=== PATIENT | female | born 1990 | race Caucasian/White ===

== ENCOUNTER 2017-01-08 17:08 | Inpatient (IN) | payer OTHER ==
--- NOTE | 2017-01-08 17:42 | PCM.LDHP ---
L&D History of Present Illness - General Date of Service: 01/08/17 Admit Problem/Dx: Admission Diagnosis/Problem Admission Diagnosis/Problem Source of Information: Patient History Limitations: Reports: No limitations - History of Present Illness Introduction:: Patient is a 26 y/o at 23 5/7 wks who presents to L&D today due to complaints of decreased FM yesterday and today. Reports this has otherwise been complicated. No recent falls or traumas. No other concerns. - Related Data Allergies/Adverse Reactions: Allergies Allergy/AdvReac Type Severity Reaction Status Date / Time amoxicillin Allergy Rash Verified 09/18/15 09:13 Sulfa (Sulfonamide Allergy Hives Verified 09/18/15 09:13 Antibiotics) Home Medications: Home Meds Acetaminophen [Tylenol] 650 mg PO Q6H PRN #50 tablet 09/14/15 [Rx] Acetaminophen/oxyCODONE [Percocet 325-5 MG] 1 tab PO Q6H PRN #15 tablet [Rx] Benzocaine/Menthol [Dermoplast Pain Relief [place]] 1 spray TOP ASDIRECTED PRN #1 canister 09/14/15 [Rx] Docusate Sodium [Colace] 100 mg PO BID PRN #50 cap 09/14/15 [Rx] Ferrous Sulfate 325 mg PO BIDMEALS #50 tablet 09/14/15 [Rx] Ibuprofen [Motrin] 200 - 600 mg PO Q6H PRN #50 tablet 09/14/15 [Rx] Lanolin [Lansinoh HPA] 1 applic TOP ASDIRECTED PRN #1 tube 09/14/15 [Rx] Vit with Ca/FA/Iron [ Plus Iron] 1 each PO DAILY #100 tablet [Rx] Vit C/Ascorbate Ca/Ascorb Sod [Vitamin C] 500 mg PO BID #50 ml 09/14/15 [Rx] Misoprostol [Cytotec] 200 mcg PO Q6H #16 tablet 09/15/15 [Rx] Past Medical History Cardiovascular History: Reports: Other (see below) (Gestational HTN/ Preeclampsia with first ) 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) LMP (Approximate): - Past Surgical History Other HEENT Surgeries/Procedures: [place] teeth extraction under [place] Female Surgical History: Reports: D&C ( due to retained placenta) Social & Family History - Tobacco Use Smoking Status *Q: Former Smoker (quit 9 months ago) Years of Tobacco use: 7 Packs/Tins Daily: 1 Used Tobacco, but Quit: Yes Month Tobacco Last Used: January Second Hand Smoke Exposure: No - Alcohol Use Alcohol Use History: No Days Per Week of Alcohol Use: 0 - Recreational Drug Use Recreational Drug Use: No H&P Review of Systems - Review of Systems: Review Of Systems: See Below General: Reports: no symptoms Pulmonary: Reports: No Symptoms Cardiovascular: Reports: no symptoms Gastrointestinal: Reports: No symptoms Genitourinary: Reports: no symptoms Musculoskeletal: Reports: no symptoms Psychiatric: Reports: no symptoms L&D Exam - Exam Exam: See Below - Vital Signs Weight: 98.883 kg - OB Specific Contraction Intensity: Irritability movement: not appreciated heart tones: not heard Presentation: Breech - Exam General: alert, oriented, cooperative Lungs: Clear to auscultation, Normal respiratory effort Cardiovascular: regular rate, regular rhythm Abdomen: soft Genitourinary: Normal external exam Extremities: normal inspection Skin: warm, dry, intact - Problem List (1) 23 weeks gestation of SNOMED Code(s): 20619794 ICD Code: Z3A.23 - 23 WEEKS GESTATION OF Status: Acute Current Visit: Yes (2) Intrauterine in SNOMED Code(s): 57565010, 278989065 ICD Code: O36.4XX0 - MATERNAL CARE FOR INTRAUTERINE , NOT APPLICABLE OR UNSP Status: Acute Current Visit: Yes Qualifiers: Fetus number: single or unspecified fetus Qualified Code(s): O36.4XX0 - Maternal care for intrauterine , not applicable or unspecified Problem List Initiated/Reviewed/Updated: Yes Orders Last 24hrs: My Active Orders 01/08/17 20:00 ANTICARDIOLIPIN AB PANEL IGG/M [REF] Timed ANTITHROMBIN III ACTIVITY [REF] Timed CBC W/O DIFF,HEMOGRAM [HEME] Timed FACTOR 5 LEIDEN MUTATION [REF] Timed FIBRINOGEN [COAG] Timed INR,PT,PROTHROMBIN TIME [COAG] Timed LUPUS ANTICOAGULANT PANEL [REF] Timed MISC TEST Urgent PARVOVIRUS B19 IGG AND IGM [REF] Timed PROTHROMBIN 22088 MUTATION [REF] Timed PTT,PARTIAL THROMBOPLSTIN TIME [COAG] Timed TSH [CHEM] Timed TYPE AND SCREEN [BBK] Timed Assessment/Plan Comment:: 26 y/0 at 23 5/7 wks with demise. * Lab testing as above to help determine etiology of demise. Also discussed sending placenta and karyotype. Reviewed possibility of autopsy and they will consider this. * Pain management per her preference * Will proceed with Cytotec 400 mcg vaginal q 4 hours. 600 mcg buccal after delivery to aid in expulsion of placenta. Clara Ellis MD
--- NOTE | 2017-01-08 18:38 | US ---
Obstetrical ultrasound: Multiple real-time images were obtained transabdominally. Comparison: Previous obstetrical ultrasounds are available, most recent is 12/30/16. Dates: LMP: ? Current ultrasound: BEN 05/22/17, gestational age 20 weeks 6 days Earliest ultrasound, BEN 05/02/17, gestational age 23 weeks 5 days Findings: Skull has an elongated abnormal shape. Mild amount of ascites is seen within the abdomen. No heart activity is seen. Measurements: BPD: 4.09 cm - 18 weeks 3 days Head circumference: 17.93 cm 20 weeks 3 days Abdominal circumference: 17.05 cm - 22 weeks 1 day Femur length: 3.77 cm - 22 weeks 1 day Estimated weight: 444 g (1 lb. 0 oz.) Impression: 1. Single intrauterine fetus. Dates as noted above. 2. Abnormal skull as well as a mild amount of ascites. No heart activity is seen. Findings unfortunately are compatible with demise. Diagnostic code #5
[2017-01-08] MEDS ORDERED: Sodium Chloride 0.9% 10 ML Syringe FLUSH PRN (18:43)
[2017-01-08] MEDS ORDERED: Ondansetron 4 MG/2 ML SDV IVPUSH PRN (18:43)
[2017-01-08] MEDS ORDERED: Nalbuphine 20 MG/1 ML Amp IVPUSH PRN (18:43)
[2017-01-08] MEDS ORDERED: Lactated Ringers 1,000 ML IV SCH (18:45)
--- NOTE | 2017-01-08 19:10 | PCM.PREANE ---
Preanesthetic Assessment - Anesthesia/Transfusion/Family Hx Anesthesia History: Prior Anesthesia Without Reaction Type of Anesthesia Reaction: Unknown Family History of Anesthesia Reaction: No Transfusion History: Prior Transfusion Reaction (allergic reaction with last transfusion with last child. Pts throat began to swell about 1.5 hours after infusion started) Type of Transfusion Reactions: Reports: Unknown Intubation History: Unknown - Review of Systems General: No Symptoms Pulmonary: No Symptoms Cardiovascular: No Symptoms Gastrointestinal: No symptoms Neurological: No Symptoms Other: Reports: None - Physical Assessment NPO Status Date: 01/08/17 NPO Status Time: 15:00 Pulse: 84 O2 Sat by Pulse Oximetry: 98 Respiratory Rate: 20 Blood Pressure: 144/72 Temperature: 36.7 C Height: 1.63 m Weight: 98.883 kg ASA Class: 2 Mental Status: Alert & Oriented x3 Dentition: Reports: Normal Dentition Thyro-Mental Finger Breadths: 3 Mouth Opening Finger Breadths: 3 ROM/Head Extension: Full Lungs: Clear to auscultation, Normal respiratory effort Cardiovascular: Regular Rate, Regular Rhythm - Lab Values: pending lab results - Allergies Allergies/Adverse Reactions: Allergies Allergy/AdvReac Type Severity Reaction Status Date / Time amoxicillin Allergy Rash Verified 09/18/15 09:13 Sulfa (Sulfonamide Allergy Hives Verified 09/18/15 09:13 Antibiotics) - Blood Blood Available: No Product(s) Available: None - Anesthesia Plan Pre-Op Medication Ordered: None - Acknowledgements Anesthesia Type Planned: Epidural Pt an Appropriate Candidate for the Planned Anesthesia: Yes Alternatives and Risks of Anesthesia Discussed w Pt/Guardian: Yes Pt/Guardian Understands and Agrees with Anesthesia Plan: Yes PreAnesthesia Questionnaire Cardiovascular History: Reports: Other (see below) (Gestational HTN/ Preeclampsia with first ) 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: - Past Surgical History Other HEENT Surgeries/Procedures: [place] teeth extraction under [place] Female Surgical History: Reports: D&C ( due to retained placenta) - SUBSTANCE USE Smoking Status *Q: Former Smoker (quit 9 months ago) Tobacco Use Within Last Twelve Months: Cigarettes Second Hand Smoke Exposure: No Days Per Week of Alcohol Use: 0 Recreational Drug Use History: No - HOME MEDS Home Medications: Home Meds Acetaminophen [Tylenol] 650 mg PO Q6H PRN #50 tablet 09/14/15 [Rx] Acetaminophen/oxyCODONE [Percocet 325-5 MG] 1 tab PO Q6H PRN #15 tablet [Rx] Benzocaine/Menthol [Dermoplast Pain Relief [place]] 1 spray TOP ASDIRECTED PRN #1 canister 09/14/15 [Rx] Docusate Sodium [Colace] 100 mg PO BID PRN #50 cap 09/14/15 [Rx] Ferrous Sulfate 325 mg PO BIDMEALS #50 tablet 09/14/15 [Rx] Ibuprofen [Motrin] 200 - 600 mg PO Q6H PRN #50 tablet 09/14/15 [Rx] Lanolin [Lansinoh HPA] 1 applic TOP ASDIRECTED PRN #1 tube 09/14/15 [Rx] Vit with Ca/FA/Iron [ Plus Iron] 1 each PO DAILY #100 tablet [Rx] Vit C/Ascorbate Ca/Ascorb Sod [Vitamin C] 500 mg PO BID #50 ml 09/14/15 [Rx] Misoprostol [Cytotec] 200 mcg PO Q6H #16 tablet 09/15/15 [Rx] - CURRENT (IN HOUSE) MEDS Current Meds: Current Medications Lactated Ringer's (Ringers, Lactated) 1,000 mls @ 40 mls/hr IV ASDIRECTED SONYA Misoprostol (Cytotec) 400 mcg PO Q4H SONYA Nalbuphine HCl (Nubain) 10 mg IVPUSH Q2H PRN PRN Reason: Pain (moderate 4-6) Ondansetron HCl (Zofran) 4 mg IVPUSH Q4H PRN PRN Reason: Nausea/Vomiting Sodium Chloride (Saline Flush) 10 ml FLUSH ASDIRECTED PRN PRN Reason: Keep Vein Open
[2017-01-08] MEDS ORDERED: Misoprostol 200 MCG Tab PO SCH (21:00)
[2017-01-08] MEDS: Misoprostol 200 MCG Tab VAG SCH (23:10)
[2017-01-09] MEDS: Misoprostol 200 MCG Tab VAG SCH ×4 (00:24→12:03)
[2017-01-09] MEDS ORDERED: Misoprostol 200 MCG Tab ONE (07:11)
--- NOTE | 2017-01-09 09:47 | PCM.PNLD ---
Labor Progress Note - VS & Meds Vital Signs: Last Vital Signs Temp 37.1 C 01/09/17 05:50 Pulse 81 01/09/17 05:50 Resp 15 01/09/17 00:38 BP 132/53 L 01/09/17 05:50 Pulse Ox 96 01/09/17 05:50 Active Medications: Current Medications Lactated Ringer's (Ringers, Lactated) 1,000 mls @ 40 mls/hr IV ASDIRECTED [facility] Misoprostol (Cytotec) 400 mcg VAG Q4H [facility] Last Admin: 01/09/17 07:35 Dose: 400 mcg Nalbuphine HCl (Nubain) 10 mg IVPUSH Q2H PRN PRN Reason: Pain (moderate 4-6) Ondansetron HCl (Zofran) 4 mg IVPUSH Q4H PRN PRN Reason: Nausea/Vomiting Sodium Chloride (Saline Flush) 10 ml FLUSH ASDIRECTED PRN PRN Reason: Keep Vein Open Discontinued Medications Misoprostol (Cytotec) 400 mcg PO Q4H [facility] Last Admin: 01/08/17 20:11 Dose: 400 mcg Misoprostol (Cytotec) Confirm Administered Dose 600 mcg .ROUTE .STK-MED ONE Stop: 01/09/17 07:12 - Uterine Contractions Uterine Monitoring Mode: None in Use Contraction Intensity: Irritability - Vaginal Exam Dilation (cm): 4 Effacement (Percent): 80 Station: -1 Cervical Position: Midposition - Labor Progress (Free Text) Labor Progress: Patient doing well. Feeling more uncomfortable. Attempt made at ROM. Scant fluid returned. Next dose of cytotec placed. Anticipate
--- NOTE | 2017-01-09 09:49 | PCM.DEL ---
L & D Note - General Info Date of Service: 01/09/17 - Delivery Note Cervical Ripening Method: Misoprostil Delivery Outcome: Stillbirth Delivery Method: Spontaneous Vaginal Delivery Delivery Mode: Spontaneous Presentation: Breech Nuchal cord: none Anesthesia Type: None Amniotic Fluid Description: Clear Episiotomy Type: None Laceration: none Placenta: expressed Estimated blood loss: 350 Delivery Comments (Free Text/Narrative):: Patient found to be complete and began pushing. With maternal pushing effort fetus delivered from breech presentation. Cord clamped and cut. Baby cleaned and handed to mom/father. Patient given 600 mcg of buccal cytotec to aid in delivery of placenta. At about 30 minutes post delivery exam done which showed placenta partially within cervix. It was grasped and in combination with maternal pushing effort was expelled intact. - Patient Data Vitals - most recent: Last Vital Signs Temp 37.1 C 01/09/17 05:50 Pulse 81 01/09/17 05:50 Resp 15 01/09/17 00:38 BP 132/53 L 01/09/17 05:50 Pulse Ox 96 01/09/17 05:50 Weight - most recent: 98.883 kg Lab Results last 24 hrs: Laboratory Results - last 24 hr 01/08/17 01/08/17 01/08/17 Range/Units 17:30 20:00 20:00 WBC 10.66 H (3.98-10.04) K/mm3 RBC 4.51 (3.98-5.22) M/mm3 Hgb 13.8 (11.2-15.7) gm/L Hct 39.3 (34.1-44.9) % MCV 87.1 (79.4-94.8) fl MCH 30.6 (25.6-32.2) pg MCHC 35.1 (32.2-35.5) g/dl RDW Std Deviation 40.5 (36.4-46.3) fL Plt Count 231 (182-369) K/mm3 MPV 11.4 (9.4-12.3) fl PT 9.5 (8.0-13.0) SECONDS INR 0.88 APTT 27 (22-36) SECONDS Fibrinogen 415.4 H (200-400) mg/dL TSH 3rd Generation (0.358-3.74) uIU/mL Urine Opiates Screen Negative (NEGATIVE) Ur Buprenorphine Scrn Negative (NEGATIVE) Ur Oxycodone Screen Negative (NEGATIVE) Urine Methadone Screen Negative (NEGATIVE) Ur Propoxyphene Screen Negative (NEGATIVE) Ur Barbiturates Screen Negative (NEGATIVE) Ur Tricyclics Screen Negative (NEGATIVE) Ur Phencyclidine Scrn Negative (NEGATIVE) Ur Amphetamine Screen Negative (NEGATIVE) U Methamphetamines Scrn Negative (NEGATIVE) U Benzodiazepines Scrn Negative (NEGATIVE) U Cocaine Metab Screen Negative (NEGATIVE) U Marijuana (THC) Screen Negative (NEGATIVE) Blood Type Gel Antibody Screen 01/08/17 01/08/17 Range/Units 20:00 20:00 WBC (3.98-10.04) K/mm3 RBC (3.98-5.22) M/mm3 Hgb (11.2-15.7) gm/L Hct (34.1-44.9) % MCV (79.4-94.8) fl MCH (25.6-32.2) pg MCHC (32.2-35.5) g/dl RDW Std Deviation (36.4-46.3) fL Plt Count (182-369) K/mm3 MPV (9.4-12.3) fl PT (8.0-13.0) SECONDS INR APTT (22-36) SECONDS Fibrinogen (200-400) mg/dL TSH 3rd Generation 1.782 (0.358-3.74) uIU/mL Urine Opiates Screen (NEGATIVE) Ur Buprenorphine Scrn (NEGATIVE) Ur Oxycodone Screen (NEGATIVE) Urine Methadone Screen (NEGATIVE) Ur Propoxyphene Screen (NEGATIVE) Ur Barbiturates Screen (NEGATIVE) Ur Tricyclics Screen (NEGATIVE) Ur Phencyclidine Scrn (NEGATIVE) Ur Amphetamine Screen (NEGATIVE) U Methamphetamines Scrn (NEGATIVE) U Benzodiazepines Scrn (NEGATIVE) U Cocaine Metab Screen (NEGATIVE) U Marijuana (THC) Screen (NEGATIVE) Blood Type O POSITIVE Gel Antibody Screen Negative Med Orders - Current: Current Medications Lactated Ringer's (Ringers, Lactated) 1,000 mls @ 40 mls/hr IV ASDIRECTED SONYA Misoprostol (Cytotec) 400 mcg VAG Q4H SONYA Last Admin: 01/09/17 07:35 Dose: 400 mcg Nalbuphine HCl (Nubain) 10 mg IVPUSH Q2H PRN PRN Reason: Pain (moderate 4-6) Ondansetron HCl (Zofran) 4 mg IVPUSH Q4H PRN PRN Reason: Nausea/Vomiting Sodium Chloride (Saline Flush) 10 ml FLUSH ASDIRECTED PRN PRN Reason: Keep Vein Open Discontinued Medications Misoprostol (Cytotec) 400 mcg PO Q4H SONYA Last Admin: 01/08/17 20:11 Dose: 400 mcg Misoprostol (Cytotec) Confirm Administered Dose 600 mcg .ROUTE .ST-MED ONE Stop: 01/09/17 07:12 - Problem List & Annotations (1) 23 weeks gestation of SNOMED Code(s): 87355460 Code(s): Z3A.23 - 23 WEEKS GESTATION OF Status: Acute Current Visit: Yes (2) Intrauterine in SNOMED Code(s): 28262815, 945680916 Code(s): O36.4XX0 - MATERNAL CARE FOR INTRAUTERINE , NOT APPLICABLE OR UNSP Status: Acute Current Visit: Yes Qualifiers: Fetus number: single or unspecified fetus Qualified Code(s): O36.4XX0 - Maternal care for intrauterine , not applicable or unspecified (3) Vaginal delivery SNOMED Code(s): 193716820 Code(s): O80 - ENCOUNTER FOR FULL-TERM UNCOMPLICATED DELIVERY Status: Acute Current Visit: Yes - Problem List Review Problem List Initiated/Reviewed/Updated: Yes - My Orders Last 24 Hours: My Active Orders 01/08/17 18:43 Patient Status [ADT] Routine Activity as Tolerated [RC] PFP Vital Signs [RC] PER UNIT ROUTINE Nalbuphine [Nubain] 10 mg IVPUSH Q2H PRN Ondansetron [Zofran] 4 mg IVPUSH Q4H PRN Sodium Chloride 0.9% [Saline Flush] 10 ml FLUSH ASDIRECTED PRN Peripheral IV Insertion Adult [OM.PC] Routine Resuscitation Status Routine 01/08/17 18:44 Peripheral IV Care [RC] . DIRECTED 01/08/17 18:45 Lactated Ringers [Ringers, Lactated] 1,000 ml IV ASDIRECTED 01/08/17 20:00 ANTICARDIOLIPIN AB PANEL IGG/M [REF] Timed ANTITHROMBIN III ACTIVITY [REF] Timed FACTOR 5 LEIDEN MUTATION [REF] Timed LUPUS ANTICOAGULANT PANEL [REF] Timed PARVOVIRUS B19 IGG AND IGM [REF] Timed PROTHROMBIN 31837 MUTATION [REF] Timed 01/08/17 21:00 Misoprostol [Cytotec] 400 mcg VAG Q4H 01/09/17 09:42 Patient Status Manage Transfer [TRANSFER] Routine - Assessment Assessment:: 26 y/0 G2 now P1101 PPD#0 from at 23 6/7 wks after IOL for demise. - Plan Plan:: * Lab testing pending * Routine/supportive cares * Discharge today vs tomorrow pending patient preference Clara Ellis MD
[2017-01-09] MEDS ORDERED: Ibuprofen 600 MG Tab PO PRN (12:03)
[2017-01-09] MEDS ORDERED: Acetaminophen 325 MG Tab PO PRN (12:03)
[2017-01-09] MEDS ORDERED: Witch Hazel Medicated Pads 100/Jar TOP PRN (12:03)
--- NOTE | 2017-01-09 14:39 | PCM.DCSUM1 ---
Discharge Summary - Discharge Data Discharge Date: 01/09/17 Discharge Disposition: Home, Self-Care 01 Condition: Good - Discharge Diagnosis/Problem(s) (1) 23 weeks gestation of SNOMED Code(s): 28785385 ICD Code: Z3A.23 - 23 WEEKS GESTATION OF Status: Acute Current Visit: Yes (2) Intrauterine in SNOMED Code(s): 05170907, 774146704 ICD Code: O36.4XX0 - MATERNAL CARE FOR INTRAUTERINE , NOT APPLICABLE OR UNSP Status: Acute Current Visit: Yes Qualifiers: Fetus number: single or unspecified fetus Qualified Code(s): O36.4XX0 - Maternal care for intrauterine , not applicable or unspecified (3) Vaginal delivery SNOMED Code(s): 659933142 ICD Code: O80 - ENCOUNTER FOR FULL-TERM UNCOMPLICATED DELIVERY Status: Acute Current Visit: Yes - Patient Summary/Data Complications: None Consults: None Labs Pending at D/C: Laboratory evaluation for demise pending at time of discharge Recommended Follow-up Testing/Procedures: Follow up in ~2 weeks for a mood check. Follow up in 5-6 weeks for check Hospital Course: 26 y/o admitted at 23 5/7 wks for complaints of decreased FM. Findings that day were consistent with a demise. Evaluation/work up collected. See H&P note for all labs drawn. Induction started with cytotec. She progressed well and underwent an uncomplicated . she was monitored for about 8 hours and then requested discharge home. This was felt reasonable. She will follow up in a few weeks for mood check and then in 5-6 weeks for check - Patient Instructions Diet: Regular Diet as Tolerated Activity: As Tolerated Activity, Other: Pelvic Rest for 6 weeks Driving: May Drive Today Showering/Bathing: May Shower Showering/Bathing, Other: May Bathe Notify Provider of: Fever, Increased Pain, Swelling and Redness, Drainage, Nausea and/or Vomiting - Discharge Plan Home Medications: Home Meds Ibuprofen [Motrin] 200 - 600 mg PO Q6H PRN #50 tablet 09/14/15 [Rx] Vit with Ca/FA/Iron [ Plus Iron] 1 each PO DAILY #100 tablet [Rx] Referrals: Clara Ellis MD [Physician] - (Mood check January 26- if she desires ) Randy Hayes MD [Primary Care Provider] - (5-6 weeks for check ) - Discharge Summary/Plan Comment DC Time >30 min.: No - Patient Data Vitals - Most Recent: Last Vital Signs Temp 37.2 C 01/09/17 09:53 Pulse 94 01/09/17 09:53 Resp 16 01/09/17 09:53 BP 128/65 01/09/17 09:53 Pulse Ox 98 01/09/17 09:53 Weight - Most Recent: 98.883 kg Lab Results - Last 24 hrs: Laboratory Results - last 24 hr 01/08/17 01/08/17 01/08/17 Range/Units 17:30 20:00 20:00 WBC 10.66 H (3.98-10.04) K/mm3 RBC 4.51 (3.98-5.22) M/mm3 Hgb 13.8 (11.2-15.7) gm/L Hct 39.3 (34.1-44.9) % MCV 87.1 (79.4-94.8) fl MCH 30.6 (25.6-32.2) pg MCHC 35.1 (32.2-35.5) g/dl RDW Std Deviation 40.5 (36.4-46.3) fL Plt Count 231 (182-369) K/mm3 MPV 11.4 (9.4-12.3) fl PT 9.5 (8.0-13.0) SECONDS INR 0.88 APTT 27 (22-36) SECONDS Fibrinogen 415.4 H (200-400) mg/dL TSH 3rd Generation (0.358-3.74) uIU/mL Urine Opiates Screen Negative (NEGATIVE) Ur Buprenorphine Scrn Negative (NEGATIVE) Ur Oxycodone Screen Negative (NEGATIVE) Urine Methadone Screen Negative (NEGATIVE) Ur Propoxyphene Screen Negative (NEGATIVE) Ur Barbiturates Screen Negative (NEGATIVE) Ur Tricyclics Screen Negative (NEGATIVE) Ur Phencyclidine Scrn Negative (NEGATIVE) Ur Amphetamine Screen Negative (NEGATIVE) U Methamphetamines Scrn Negative (NEGATIVE) U Benzodiazepines Scrn Negative (NEGATIVE) U Cocaine Metab Screen Negative (NEGATIVE) U Marijuana (THC) Screen Negative (NEGATIVE) Blood Type Gel Antibody Screen 01/08/17 01/08/17 Range/Units 20:00 20:00 WBC (3.98-10.04) K/mm3 RBC (3.98-5.22) M/mm3 Hgb (11.2-15.7) gm/L Hct (34.1-44.9) % MCV (79.4-94.8) fl MCH (25.6-32.2) pg MCHC (32.2-35.5) g/dl RDW Std Deviation (36.4-46.3) fL Plt Count (182-369) K/mm3 MPV (9.4-12.3) fl PT (8.0-13.0) SECONDS INR APTT (22-36) SECONDS Fibrinogen (200-400) mg/dL TSH 3rd Generation 1.782 (0.358-3.74) uIU/mL Urine Opiates Screen (NEGATIVE) Ur Buprenorphine Scrn (NEGATIVE) Ur Oxycodone Screen (NEGATIVE) Urine Methadone Screen (NEGATIVE) Ur Propoxyphene Screen (NEGATIVE) Ur Barbiturates Screen (NEGATIVE) Ur Tricyclics Screen (NEGATIVE) Ur Phencyclidine Scrn (NEGATIVE) Ur Amphetamine Screen (NEGATIVE) U Methamphetamines Scrn (NEGATIVE) U Benzodiazepines Scrn (NEGATIVE) U Cocaine Metab Screen (NEGATIVE) U Marijuana (THC) Screen (NEGATIVE) Blood Type O POSITIVE Gel Antibody Screen Negative Med Orders - Current: Current Medications Acetaminophen (Tylenol) 650 mg PO Q4H PRN PRN Reason: mild pain or fever Ibuprofen (Motrin) 600 mg PO Q4H PRN PRN Reason: Mild pain or fever [place] (Tucks) 1 pad TOP ASDIRECTED PRN PRN Reason: Hemorrhoid pain Discontinued Medications Lactated Ringer's (Ringers, Lactated) 1,000 mls @ 40 mls/hr IV ASDIRECTED SONYA Misoprostol (Cytotec) 400 mcg PO Q4H SONYA Last Admin: 01/08/17 20:11 Dose: 400 mcg Misoprostol (Cytotec) 400 mcg VAG Q4H SONYA Last Admin: 01/09/17 12:03 Dose: Not Given Misoprostol (Cytotec) Confirm Administered Dose 600 mcg .ROUTE .STK-MED ONE Stop: 01/09/17 07:12 Last Admin: 01/09/17 08:48 Dose: 600 mcg Nalbuphine HCl (Nubain) 10 mg IVPUSH Q2H PRN PRN Reason: Pain (moderate 4-6) Ondansetron HCl (Zofran) 4 mg IVPUSH Q4H PRN PRN Reason: Nausea/Vomiting Sodium Chloride (Saline Flush) 10 ml FLUSH ASDIRECTED PRN PRN Reason: Keep Vein Open *Q Meaningful Use (DIS) - VTE *Q VTE Criteria *Q: - Stroke *Q Stroke Criteria *Q: - AMI *Q AMI Criteria *Q:
[2017-01-09 15:09] VITALS: BP 126/76
== END 2017-01-09 15:30 | disposition home or self-care (01) | DRG 775 ==
LOC: JD.OBCHECK 17:08 → JD.OB 17:08 → JD.OBCHECK 18:43 → OBSVTOIN 01-09 09:42
PROVIDERS: ADMIT Obstetrics & Gynecology; ATTEND Obstetrics & Gynecology
PROC: 10E0XZZ Delivery of Products of Conception, External Approach (ICD-10-PCS; principal; 2017-01-09)
PROC: 3E0P7GC Introduction of Other Therapeutic Substance into Female Reproductive, Via Natural or Artificial Opening (ICD-10-PCS; 2017-01-09)
DX: O36.4XX0 Maternal care for intrauterine death, not applicable or unspecified (principal); O32.1XX0 Maternal care for breech presentation, not applicable or unspecified; Z3A.24 24 weeks gestation of pregnancy; Z37.1 Single stillbirth; Z88.1 Allergy status to other antibiotic agents; Z88.2 Allergy status to sulfonamides; Z87.891 Personal history of nicotine dependence
CPT/HCPCS: 36415; 76815; 76815-26; 80306; 81240; 81241; 84443; 85027; 85300; 85384; 85460; 85610; 85613; 85730; 86147; 86747; 86850; 86900; 86901; 87149; 88233; 88307; 88307-26; A9270-GY

== ENCOUNTER 2022-12-13 07:10 | Inpatient (IN) | payer BC ==
[2022-12-13] MEDS ORDERED: Nalbuphine 10 MG/0.5 ML Syringe IVPUSH PRN (07:47)
[2022-12-13] MEDS ORDERED: Ondansetron 4 MG/2 ML SDV IVPUSH PRN (07:47)
[2022-12-13] MEDS ORDERED: Sodium Chloride 0.9% 10 ML Syringe FLUSH PRN (07:47)
[2022-12-13] MEDS ORDERED: ceFAZolin 2 GM in Sodium Chloride 0.9% 50 ML IV ONE (07:47)
[2022-12-13] MEDS ORDERED: Oxytocin/Lactated Ringers 10 UNIT/1,000 ML BAG IV SCH ×2 (08:00)
[2022-12-13] MEDS: Lactated Ringers 1,000 ML IV SCH ×2 (08:07→15:05)
[2022-12-13] MEDS ORDERED: Bupivacaine/fentaNYL/NS 100 ML Bag EPIDUR PRN (08:47)
[2022-12-13] MEDS ORDERED: diphenhydrAMINE 50 MG/ML SDV IVPUSH PRN (08:47)
[2022-12-13] MEDS ORDERED: ePHEDrine 50 MG/ML SDV IVPUSH PRN (08:47)
[2022-12-13] MEDS ORDERED: fentaNYL 100 MCG/2 ML SDV EPIDUR PRN (08:47)
[2022-12-13] MEDS ORDERED: Sodium Chloride 0.9% 10 ML Syringe FLUSH SCH (09:00)
[2022-12-13] MEDS ORDERED: ceFAZolin 1 GM in Sodium Chloride 0.9% 100 ML IV SCH (14:00)
[2022-12-13] MEDS ORDERED: ePHEDrine 50 MG/ML SDV ONE (14:34)
[2022-12-13] MEDS ORDERED: Ropivacaine 0.2% PF 2 MG/ML 20 ML SDV ONE (16:00)
[2022-12-13] MEDS ORDERED: Benzocaine/Menthol 20%-0.5% Spray 78 GM Cannister TOP PRN (18:25)
[2022-12-13] MEDS ORDERED: Docusate Sodium 100 MG Cap PO PRN (18:25)
[2022-12-13] MEDS ORDERED: Witch Hazel Medicated Pads 40/Jar TOP PRN (18:25)
[2022-12-13] MEDS: Ibuprofen 600 MG Tab PO PRN ×2 (18:46→23:14)
[2022-12-13] MEDS: Acetaminophen 325 MG Tab PO PRN (23:14)
[2022-12-14] MEDS: Ibuprofen 600 MG Tab PO PRN ×2 (08:44→15:45)
[2022-12-14] MEDS ORDERED: Prenatal Multivitamin with Calcium/Folic Acid/Iron Tab PO SCH (09:00)
[2022-12-14] MEDS: Acetaminophen 325 MG Tab PO PRN ×2 (13:09→17:39)
[2022-12-14 16:08] VITALS: BP 128/91; PULSE 78
== END 2022-12-14 18:25 | disposition home or self-care (01) | DRG 560 ==
LOC: JD.OBCHECK 07:10 → JD.OB 07:10 → JD.OBCHECK 07:47 → JD.OB 07:48 → OBSVTOIN 17:00 → JD.OB 17:01
PROVIDERS: ADMIT Obstetrics & Gynecology; ATTEND Obstetrics & Gynecology
PROC: 10E0XZZ Delivery of Products of Conception, External Approach (ICD-10-PCS; principal; 2022-12-13)
PROC: 10907ZC Drainage of Amniotic Fluid, Therapeutic from Products of Conception, Via Natural or Artificial Opening (ICD-10-PCS; 2022-12-13)
PROC: 0KQM0ZZ Repair Perineum Muscle, Open Approach (ICD-10-PCS; 2022-12-13)
PROC: 3E033VJ Introduction of Other Hormone into Peripheral Vein, Percutaneous Approach (ICD-10-PCS; 2022-12-13)
PROC: 3E0R3BZ Introduction of Anesthetic Agent into Spinal Canal, Percutaneous Approach (ICD-10-PCS; 2022-12-13)
PROC: 00HU33Z Insertion of Infusion Device into Spinal Canal, Percutaneous Approach (ICD-10-PCS; 2022-12-13)
DX: O99.824 Streptococcus B carrier state complicating childbirth (principal); O99.214 Obesity complicating childbirth; O70.1 Second degree perineal laceration during delivery; O26.893 Other specified pregnancy related conditions, third trimester; O26.843 Uterine size-date discrepancy, third trimester; Z37.0 Single live birth; Z3A.39 39 weeks gestation of pregnancy; Z88.0 Allergy status to penicillin; Z88.2 Allergy status to sulfonamides; Z91.030 Bee allergy status
CPT/HCPCS: 36415; 51702; 59025; 59409; 85025; 86592; 86850; 86900; 86901; A9270-GY; J0690; J2590; J2795; J3490; J7120